=== PATIENT | female | born 1950 ===

== ENCOUNTER 2024-06-24 08:15 | Inpatient (IN) | payer OTHER ==
[~2024-06-24] VITALS: Ht 144.8 cm; Wt 57.2 kg
[2024-07-02 09:37] LABS: HEMATOCRIT 36.4 % (36.0-45.00); MEAN CELL VOLUME 94.2 fL (80.00-100.00); MEAN CORPUSCULAR HEMOGLOBIN 31.1 pg (27.00-32.0); MEAN CORPUSCULAR HGB CONC 33.1 g/dl (32.0-36.0); PLATELET COUNT 356 K/uL (150-450); RED BLOOD COUNT 3.87 M/uL (4.00-6.00); RED CELL DISTRIBUTION WIDTH 15.5 % (11.5-14.5)
[2024-07-02 10:17] LABS: INR 0.96; PARTIAL THROMBOPLASTIN TIME 28.2 SECONDS (22.0-34.0); PROTHROMBIN TIME 10.5 SECONDS (9.0-11.5)
[2024-07-02] MEDS ORDERED: GLUMETZA500 MG PO (10:21)
[2024-07-02] MEDS ORDERED: TOPROL XL25 M1 PO (10:22)
[2024-07-02] MEDS ORDERED: ISOSORBIDE DINI30 MG PO (10:22)
[2024-07-02] MEDS ORDERED: CHILDREN'S ASPI81 MG PO (10:23)
[2024-07-02] MEDS ORDERED: COZAAR100 MG PO (10:23)
[2024-07-02] MEDS ORDERED: ZIPSOR25 MG PO (10:24)
[2024-07-02] MEDS ORDERED: ACID REDUCER20 M1 PO (10:25)
[2024-07-02] MEDS ORDERED: DETROL LA4 MG PO (10:25)
[2024-07-02] MEDS ORDERED: ZOCOR20 MG PO (10:26)
[2024-07-02] MEDS ORDERED: HORIZANT300 MG PO (10:26)
[2024-07-02 10:31] VITALS: BP 174/76
[2024-07-02 10:34] LABS: URINE APPEARANCE Cloudy; URINE BILIRRUBIN Negative (NEGATIVE); URINE BLOOD Negative; URINE COLOR Yellow; URINE GLUCOSE Negative (NEGATIVE); URINE KETONE Negative (NEGATIVE); URINE LEUKOCYTE Small; URINE NITRATE Negative; URINE PROTEIN Negative (NEGATIVE); URINE UROBILINOGEN 0.2 E.U./dl
[2024-07-02 10:40] LABS: URINE EPITHELIAL CELLS 2.2 uL (0.0-38.8); URINE WBC 137.8 uL (0.0-23.2)
[2024-07-02 10:46] LABS: URINE BACTERIA > 9821.5 uL (0.0-1933)
[2024-07-02 10:59] LABS: ALBUMIN 3.6 gm/dL (3.4-5.0); BILIRUBIN TOTAL 0.39 mg/dL (0.3-1.2); CALCIUM 9.8 mg/dL (8.5-10.1); CREATININE SERUM 0.59 mg/dL (0.55-1.02); GFR 99.64; GLOBULINA 3.4 G/DL (2.4-3.5); POTASSIUM 4.44 mEq/L (3.5-5.1)
[2024-07-02 12:06] LABS: RH POSITIVE
[2024-07-13] MEDS ORDERED: ISOPROPYL ALCOHOL 30 ML OUNCE TOP ONE (14:49)
[2024-07-13] MEDS ORDERED: LIDOCAINE HCL 1%/EPINEPHRINE 20ML VIAL IJ ONE (14:49)
[2024-07-13] MEDS ORDERED: BUPIVACAINE HCL/MPF 0.5% 30ML VIAL ONE (14:49)
[2024-07-13] MEDS ORDERED: TRANEXAMIC ACID 100MG/1ML (1000MG) AMPUL IV ONE (14:59)
[2024-07-13] MEDS ORDERED: CEFAZOLIN SODIUM 1,000 MG VIAL ONE (14:59)
[2024-07-13] MEDS ORDERED: OxyCODONE HCL 5 MG TABLET (ROXICODONE) PO PRN (19:30)
[2024-07-13] MEDS ORDERED: MORPHINE SULFATE 4 MG/ML CARTRIDGE IV PRN (19:30)
[2024-07-13] MEDS ORDERED: SODIUM CHLORIDE 0.45 % 1,000 ML IV SCH (19:30)
[2024-07-13] MEDS ORDERED: ONDANSETRON HCL 2 MG/ML VIAL IV PRN (19:30)
[2024-07-14] MEDS ORDERED: ACETAMINOPHEN 500 MG GEL..CAP PO SCH
[2024-07-14 00:30] VITALS: BP 114/53; O2SAT 100
[2024-07-14] MEDS ORDERED: CEFAZOLIN SODIUM 1,000 MG VIAL IV SCH (01:00)
[2024-07-14] MEDS ORDERED: GABAPENTIN 300 MG CAPSULE PO SCH (01:00)
[2024-07-14 06:29] LABS: HEMATOCRIT 29.4 % (36.0-45.00); HEMOGLOBIN 10.1 g/dL (12.0-15.00); MEAN CELL VOLUME 93.4 fL (80.00-100.00); MEAN CORPUSCULAR HGB CONC 34.3 g/dl (32.0-36.0); PLATELET COUNT 338 K/uL (150-450); RED BLOOD COUNT 3.15 M/uL (4.00-6.00); RED CELL DISTRIBUTION WIDTH 15.4 % (11.5-14.5)
[2024-07-14] MEDS ORDERED: CEFADROXIL500 MG PO (08:08)
[2024-07-14] MEDS ORDERED: ELIQUIS2.5 MG PO (08:08)
[2024-07-14] MEDS ORDERED: PERCOCET 5-3251 EACH PO (08:08)
[2024-07-14 08:29] VITALS: BP 141/67; O2SAT 98
[2024-07-14] MEDS ORDERED: APIXABAN 2.5 MG TABLET PO SCH (09:00)
[2024-07-14] MEDS ORDERED: IRON FUM,PS/FOLIC ACID/VITC/B3 1 CAP CAPSULE PO SCH (09:00)
[2024-07-14] MEDS ORDERED: SENNOSIDES 1 TAB TABLET PO SCH (09:00)
[2024-07-14] MEDS ORDERED: Cyanocobalamin/Mecobalamin 1 TAB.SL SL SCH (13:12)
[2024-07-14] MEDS ORDERED: SOD FERRIC GLUC COMPLX/SUCROSE 62.5 MG/5 ML AMPUL IV SCH (13:12)
[2024-07-14 16:00] VITALS: BP 142/63; O2SAT 98
[2024-07-14] MEDS ORDERED: VITAMIN B COMPLEX 1 EACH PO SCH (17:00)
[2024-07-15 01:25] VITALS: BP 137/62; O2SAT 98
[2024-07-15 07:14] LABS: HEMATOCRIT 25.5 % (36.0-45.00); MEAN CELL VOLUME 92.1 fL (80.00-100.00); MEAN CORPUSCULAR HEMOGLOBIN 31.4 pg (27.00-32.0); MEAN CORPUSCULAR HGB CONC 34.1 g/dl (32.0-36.0); PLATELET COUNT 285 K/uL (150-450); RED BLOOD COUNT 2.77 M/uL (4.00-6.00); RED CELL DISTRIBUTION WIDTH 15.1 % (11.5-14.5)
[2024-07-15 07:16] LABS: HEMOGLOBIN 8.7 g/dL (12.0-15.00)
[2024-07-15 08:00] VITALS: BP 153/76; O2SAT 99
[2024-07-15] MEDS ORDERED: FUROsemide 20 MG/2 ML VIAL IV SCH (10:15)
[2024-07-15 12:00] VITALS: BP 145/67; O2SAT 97
[2024-07-15 16:00] VITALS: BP 151/67; O2SAT 99
[2024-07-15] MEDS ORDERED: INSULIN LISPRO 1,000 UNIT/10 ML UNITS SUBCUTANEO PRN (21:00)
[2024-07-15] MEDS ORDERED: DEXTROSE 50 % IN WATER 0.5 G/ML DISP.SYRIN IV PRN (21:00)
[2024-07-16] VITALS: BP 141/64; O2SAT 99
[2024-07-16 08:00] VITALS: BP 160/82; O2SAT 98
[2024-07-16 17:00] VITALS: BP 118/78; O2SAT 98
[2024-07-17 00:58] VITALS: BP 137/79; O2SAT 98
[2024-07-17 08:00] VITALS: BP 154/78; O2SAT 96
[2024-07-17 17:32] VITALS: BP 153/70; O2SAT 100
[2024-07-17 23:41] LABS: HEMATOCRIT 35.6 % (36.0-45.00); MEAN CORPUSCULAR HGB CONC 33.7 g/dl (32.0-36.0); PLATELET COUNT 335 K/uL (150-450); RED CELL DISTRIBUTION WIDTH 16.6 % (11.5-14.5)
[2024-07-18] VITALS: BP 139/80; O2SAT 96
[2024-07-18 08:00] VITALS: BP 160/70; O2SAT 97
[2024-07-18 16:00] VITALS: BP 160/73; O2SAT 100
[2024-07-19] VITALS: BP 137/63; O2SAT 95
[2024-07-19 07:46] LABS: HEMATOCRIT 35.6 % (36.0-45.00); HEMOGLOBIN 12.1 g/dL (12.0-15.00); MEAN CELL VOLUME 90.3 fL (80.00-100.00); MEAN CORPUSCULAR HEMOGLOBIN 30.7 pg (27.00-32.0); PLATELET COUNT 389 K/uL (150-450); RED BLOOD COUNT 3.94 M/uL (4.00-6.00); RED CELL DISTRIBUTION WIDTH 16.6 % (11.5-14.5)
[2024-07-19 08:10] VITALS: BP 110/80; O2SAT 96
[2024-07-19 08:36] LABS: BILIRUBIN TOTAL 0.59 mg/dL (0.3-1.2); CALCIUM 8.8 mg/dL (8.5-10.1); CREATININE SERUM 0.5 mg/dL (0.55-1.02); GFR 120.61; GLOBULINA 3.6 G/DL (2.4-3.5); POTASSIUM 4.51 mEq/L (3.5-5.1); TOTAL PROTEIN 5.6 gm/dL (6.4-8.2)
[2024-07-19 08:37] LABS: C-REACTIVE PROTEIN 10.5 MG/DL (0.00-0.29)
[2024-07-19 16:00] VITALS: BP 131/77; O2SAT 96
== END 2024-07-20 07:18 | disposition home or self-care (01) | DRG 470 ==
LOC: O/R 07-13 06:10 → SURH 07-13 07:00
PROVIDERS: Internal Medicine; ADMIT Orthopaedic Surgery; ATTEND Orthopaedic Surgery
PROC: 0MNP0ZZ Release Left Knee Bursa and Ligament, Open Approach (ICD-10-PCS; 2024-07-13)
PROC: 0SUD07Z Supplement Left Knee Joint with Autologous Tissue Substitute, Open Approach (ICD-10-PCS; 2024-07-13)
PROC: 0SRD0J9 Replacement of Left Knee Joint with Synthetic Substitute, Cemented, Open Approach (ICD-10-PCS; principal; 2024-07-13 07:00)
PROC: 30233N1 Transfusion of Nonautologous Red Blood Cells into Peripheral Vein, Percutaneous Approach (ICD-10-PCS; 2024-07-15)
PROC: B54CZZZ Ultrasonography of Left Lower Extremity Veins (ICD-10-PCS; 2024-07-18)
DX: M17.12 Unilateral primary osteoarthritis, left knee (principal); D62 Acute posthemorrhagic anemia; E11.9 Type 2 diabetes mellitus without complications; I10 Essential (primary) hypertension; Z79.4 Long term (current) use of insulin; M81.0 Age-related osteoporosis without current pathological fracture; E78.49 Other hyperlipidemia; R60.0 Localized edema